=== PATIENT | female | born 1990 | race Caucasian/White ===

== ENCOUNTER 2022-04-27 07:55 | Emergency (ER) | payer OTHER, SELFPAY ==
[2022-04-27 08:05] VITALS: BP 101/56; PULSE 98; RESP 16; TEMP 36.8; O2SAT 97; BMI 28.2
--- NOTE | 2022-04-27 08:53 | ED.GENADULT ---
HPI - General Adult General Time Seen by Provider: 08:53 Date Seen: 04/27/22 Chief complaint: Abdominal Pain Stated complaint: Stomach pain Time Seen by Provider: 04/27/22 08:52 Source: patient and RN notes reviewed Mode of arrival: ambulatory Limitations: no limitations History of Present Illness HPI narrative: Patient is a 32-year-old female accompanied by a female whom I presume is her mom to the ER with abdominal pain. This pain woke her up at about 550 this morning. It does go throughout her whole abdomen but it is concentrated in the lower abdomen. She had a normal bowel movement yesterday. Denies any nausea, vomiting, fever with this. She did not eat this morning but she is hungry. Her appetite has otherwise been normal prior to this. No urinary symptoms. She had a and delivered in July 2020, had a Mirena IUD placed at the visit. She has had an ovarian cyst before but none since the IUD has been in place. She recently had just a little brown spotting but overall does not have significant bleeding with a Mirena IUD, mostly cessation of menses. Yesterday she felt a little left upper quadrant crampy discomfort that went into her back. She has had no respiratory symptoms with this. MD complaint: Abdominal pain Related Data Home Medications Medication Instructions Recorded Confirmed No Known Home Medications 04/27/22 04/27/22 Allergies Allergy/AdvReac Type Severity Reaction Status Date / Time No Known Drug Allergies Allergy Verified 04/17/22 18:51 Review of Systems Status of ROS: Reports: 10 or more systems reviewed and unremarkable except as noted in History and below PFSH PFS Social History Smoking Status: Never smoker Do you use any of these nicotine containing products: None Second hand tobacco smoke exposure: No How often do you have a drink containing alcohol: never How often do you have six or more drinks on one occasion: Never AUDIT-C Alcohol total score: 0 Non-prescribed substance use: denies use Exam Const: Vital Signs, click to edit/add: Vital Signs - 24 hr 04/27/22 08:05 04/27/22 10:00 Temperature 98.2 F Pulse Rate [Right Pulse Oximeter] 98 82 Respiratory Rate 16 20 Blood Pressure [Ri ght Upper Arm] 101/56 L 92/51 L Pulse Oximetry 97 97 Oxygen Delivery Me thod Room Air Room Air Documenting provider has reviewed patient's vital signs: yes Common normals: no apparent distress, average body habitus, oriented x3, no limitations, healthy appearing, alert and well nourished General appearance: cooperative and comfortable HENMT: Common normals: normocephalic, head/scalp atraumatic, hearing grossly normal bilaterally and external ears normal Head and scalp: normocephalic and atraumatic External ear: external ears normal Eye: Common normals: PERRL, EOMs intact bilaterally, conjunctivae normal and no scleral icterus Conjunctiva: conjunctiva(e) normal Pupil: PERRL Neck & C-Spine: Common normals: full ROM, no lymphadenopathy, supple, no meningeal signs, no JVD and thyroid normal Thyroid: thyroid normal Chest: Common normals: inspection of chest normal and palpation of chest normal Resp: Common normals: normal respiratory effort, no retractions, no use of accessory muscles and clear to auscultation bilaterally Auscultation: clear to auscultation bilaterally Cardio: Common normals: no JVD, regular rate, regular rhythm, S1 normal heart sound, S2 normal heart sound, no gallops, no clicks and no murmurs Rate: regular rate Rhythm: regular rhythm Heart sounds: S1 normal and S2 normal GI: Common normals: Normal to inspection, nondistended, normoactive bowel sounds present, soft to palpation, no hepatosplenomegaly and no masses Palpation: soft, tender (Mild diffuse tenderness throughout her lower abdomen, no rebound/guarding) and no hepatosplenomegaly : Common normals: no CVA tenderness Bladder/kidney exam: no CVA tenderness Back & Pelvis: Common normals: no CVA tenderness, thoracic and lumbar spine normal to inspection and no thoracic nor lumbar tenderness Extremity: Common normals: normal to inspection, full ROM, normal capillary refill, no joint enlargement, no clubbing, cyanosis or edema, no calf tenderness and no pedal edema Neuro: Common normals: oriented x3 Sensorium/orientation: alert Meningeal signs: no meningeal signs Course Course Hospital Course: Will place an IV in this patient, obtain blood work. We will initiate some normal saline and Toradol for pain management. We will start with a pelvic ultrasound 1st as ovarian pathology such as ovarian cyst is high in the differential. Patient expressed concern of ectopic as she had done some reading on this. I reviewed with her that that certainly is in her differential and we will be obtaining a test. Will look at appropriate labs and guide therapy accordingly. She understands that we may need to proceed to further advanced imaging in with a CT if need be. Reevaluation(s) Reevaluation #1: Reviewed with Trinidad her ultrasound results. There is a hemorrhagic cyst or follicle on the right ovary. This certainly could explain the lower pelvic pain. She states that she is feeling more on the left side however. Reviewed with her that I sometimes see this that patient is well actually sparing since the pain more on the other side when it comes to the ovaries. We did review her elevated white blood count and did review that we have not completely ruled out an early appendicitis. It is not certainly likely to have 2 issues, we did review radiation, did review possibility observation outpatient. She really would like to proceed with CT abdomen pelvis just to ensure that there is nothing else happening. I do think it is reasonable and I have ordered a CT abdomen and pelvis with IV contrast. She states the Toradol did certainly help. Time: 10:57 Reevaluation #2: Reviewed with her the CT report. There is some stool buildup but she is not feeling constipated. Will give her information on this 5 understand she is not feeling symptomatic. This CT confirms the right ovarian hemorrhagic cyst. She is still having some pain, will send her with some oxycodone for more severe pain, that way she can use Tylenol ibuprofen per bottle directions. Vital Signs Vital signs: Initial Vital Signs Temperature 98.2 F 04/27/22 08:05 Temperature Source Temporal Artery Scan 04/27/22 08:05 Pulse Rate 98 04/27/22 08:05 Pulse Rhythm 04/27/22 08:05 Respiratory Rate 16 04/27/22 08:05 Blood Pressure 101/56 L 04/27/22 08:05 Blood Pressure Mean 71 04/27/22 08:05 Blood Pressure Position Sitting 04/27/22 08:05 Pulse Oximetry 97 04/27/22 08:05 Oxygen Delivery Method 04/27/22 08:05 Vital Signs Temperature 98.2 F 04/27/22 08:05 Pulse Rate 98 04/27/22 08:05 Respiratory Rate 16 04/27/22 08:05 Blood Pressure 101/56 L 04/27/22 08:05 Pulse Oximetry 97 04/27/22 08:05 Oxygen Delivery Method 04/27/22 08:05 Temperature 98.2 F 04/27/22 08:05 Pulse Rate 82 04/27/22 10:00 Respiratory Rate 20 04/27/22 10:00 Blood Pressure 92/51 L 04/27/22 10:00 Pulse Oximetry 97 04/27/22 10:00 Oxygen Delivery Method 04/27/22 10:00 Medical Decision Making Lab Data Lab results reviewed: Yes I reviewed the patient's lab results Labs: Lab Results 04/27/22 04/27/22 04/27/22 Range/Units 09:10 09:10 09:10 WBC 18.06 H (4.50-11.00) K/uL RBC 4.83 (4.00-5.20) m/uL Hgb 14.8 (12.0-16.0) gm/dL Hct 41.3 (33.0-51.0) % MCV 86 (80-100) fL MCH 31 (26-34) pg MCHC 36 (32-36) gm/dL RDW Coeff of Arti 11.7 (11.5-15.5) % Plt Count 162 (140-440) K/uL Neut % (Auto) 85.9 H (42.0-72.0) % Lymph % (Auto) 8.5 L (20-44) % [place] % (Auto) 4.9 (0.0-11.0) % Eos % (Auto) 0.4 (0.0-7.0) % Baso % (Auto) 0.1 (0.0-3.0) % Neut # (Auto) 15.50 H (1.7-7.0) K/uL Lymph # (Auto) 1.50 (0.90-2.90) K/uL [place] # (Auto) 0.90 (0.00-0.90) K/UL Eos # (Auto) 0.10 (0.00-0.50) K/uL Baso # (Auto) 0.00 (0.00-0.30) K/uL Abs Immat Gran (auto) 0.03 (0.00-0.30) K/uL Sodium 138 (135-149) mmol/L Potassium 3.8 (3.6-5.1) mmol/L Chloride 106 (96-114) mmol/L Carbon Dioxide 24 (20-32) mmol/L BUN 17 (5-24) mg/dL Creatinine 0.6 (0.5-1.5) mg/dL Estimated Creat Clear 128.48 Estimated GFR 121 ml/min Glucose 107 (60-115) mg/dL Lactate (0.5-1.9) mmol/L Calcium 9.0 (8.4-10.6) mg/dL Total Bilirubin 0.6 (0.1-1.5) mg/dL AST 20 (12-35) U/L ALT 11 (4-35) U/L Alkaline Phosphatase 57 (40-150) U/L C-Reactive Protein < 0.5 L (0.5-1.0) mg/dL Total Protein 7.9 (6.0-8.3) g/dL Albumin 4.6 (3.3-5.0) g/dL Urine Color (Yellow) Urine Appearance (Clear) Urine pH (5.0-8.5) Ur Specific [place] (1.000-1.030) Urine Protein (Negative) Urine Glucose (UA) (Negative) Urine Ketones (Negative) Urine Blood (Negative) Urine Nitrite (Negative) Urine Bilirubin (Negative) Urine Urobilinogen (0.2-1.0) Ur Leukocyte Esterase (Negative) Urine RBC (0-2) Urine WBC (0-5) Ur Squamous Epith Cells (None-Few) Urine Bacteria (None) Urine HCG, Qual Negative (Negative) 04/27/22 04/27/22 Range/Units 09:10 09:10 WBC (4.50-11.00) K/uL RBC (4.00-5.20) m/uL Hgb (12.0-16.0) gm/dL Hct (33.0-51.0) % MCV (80-100) fL MCH (26-34) pg MCHC (32-36) gm/dL RDW Coeff of Arti (11.5-15.5) % Plt Count (140-440) K/uL Neut % (Auto) (42.0-72.0) % Lymph % (Auto) (20-44) % [place] % (Auto) (0.0-11.0) % Eos % (Auto) (0.0-7.0) % Baso % (Auto) (0.0-3.0) % Neut # (Auto) (1.7-7.0) K/uL Lymph # (Auto) (0.90-2.90) K/uL [place] # (Auto) (0.00-0.90) K/UL Eos # (Auto) (0.00-0.50) K/uL Baso # (Auto) (0.00-0.30) K/uL Abs Immat Gran (auto) (0.00-0.30) K/uL Sodium (135-149) mmol/L Potassium (3.6-5.1) mmol/L Chloride (96-114) mmol/L Carbon Dioxide (20-32) mmol/L BUN (5-24) mg/dL Creatinine (0.5-1.5) mg/dL Estimated Creat Clear Estimated GFR ml/min Glucose (60-115) mg/dL Lactate 0.6 (0.5-1.9) mmol/L Calcium (8.4-10.6) mg/dL Total Bilirubin (0.1-1.5) mg/dL AST (12-35) U/L ALT (4-35) U/L Alkaline Phosphatase (40-150) U/L C-Reactive Protein (0.5-1.0) mg/dL Total Protein (6.0-8.3) g/dL Albumin (3.3-5.0) g/dL Urine Color Yellow (Yellow) Urine Appearance Clear (Clear) Urine pH 5.5 (5.0-8.5) Ur Specific [place] >= 1.030 (1.000-1.030) Urine Protein Negative (Negative) Urine Glucose (UA) Negative (Negative) Urine Ketones Negative (Negative) Urine Blood Negative (Negative) Urine Nitrite Negative (Negative) Urine Bilirubin Negative (Negative) Urine Urobilinogen 0.2 (0.2-1.0) Ur Leukocyte Esterase Negative (Negative) Urine RBC 0-2 (0-2) Urine WBC 0-2 (0-5) Ur Squamous Epith Cells Few (None-Few) Urine Bacteria Few A (None) Urine HCG, Qual (Negative) Imaging Data US - abdomen: Attestation: I have reviewed the pertinent imaging results. Radiologist's impression: Patient: TRINIDAD PANDEY Facility:?[facility] Patient ID:?[id number] Site Patient ID:?[id number]. Site :?[id number] Study:?US Pelvis -04/27/2022 9:50:47 AM Ordering Physician:Pili Solorio Final Report: INDICATION: Acute pelvic pain. TECHNIQUE: Ultrasound pelvis transabdominal and transvaginal for better assessment or to better visualize the endometrium. Real-time sonographic images with spectral and color Doppler imaging of the ovaries were obtained. COMPARISON: None. FINDINGS: Uterus: 7 x 5 x 4 cm. Normal echotexture of the myometrium. No masses. Endometrium: Transvaginal imaging was performed to better evaluate the endometrium. Endometrium is obscured by an IUD which appears in proper position. No sign of endometrial mass or fluid. Right ovary 3 x 2 x 2. Left ovary 3 x 2 x 2. Small collapsed cyst or follicle in the right ovary may be hemorrhagic. Normal arterial and venous blood flow is demonstrated in both ovaries. Cul-de-sac: No significant free fluid. IMPRESSION: Collapsing possibly hemorrhagic small right ovarian cyst or follicle. This is almost certainly benign and does not require follow-up evaluation. Remainder of the exam is unremarkable. No other finding to explain pain. Dictated by Lui Lema MD @ 04/27/2022 10:01:56 AM (Electronic Signature) CT scan - abdomen: Attestation: I have reviewed the pertinent imaging results. Radiologist's impression: Patient: TRINIDAD PANDEY Facility:?[facility] Patient ID:?[id number] Site Patient ID:?[id number]. Site :?[id number] Study:?CT Abdomen/Pelvis W/ISOVUE 370 89CC-04/27/2022 11:24:17 AM Ordering Physician:?Roshni Solorio Final Report: INDICATION: Lower abdominal pain, elevated white blood cell count TECHNIQUE: CT abdomen and pelvis acquired with IV contrast. 89 cc Isovue 370 COMPARISON: None FINDINGS: Lower chest: Unremarkable. Liver: Unremarkable. Spleen: Unremarkable. Pancreas: Unremarkable. Gallbladder and bile ducts: Unremarkable. Kidneys: Unremarkable. Adrenal glands: Unremarkable. GI tract: Diffuse colonic fecal retention. Normal small bowel. Appendix is normal. Vascular structures: Unremarkable. Lymph nodes: Unremarkable. Miscellaneous: No free air or significant free fluid. Pelvic Organs: IUD present in the endometrial canal. Small amount of low-density free fluid right-sided pelvis. Collapsing or ruptured right ovarian cyst Bones: Unremarkable for age. IMPRESSION: Diffuse colonic fecal retention. Normal appendix. No evidence for diverticulitis. Possible collapsing versus ruptured right ovarian cyst small amount of free fluid in the adjacent pelvis. Dictated by Tian Jarvis MD @ 04/27/2022 12:02:20 PM Please note that all CT scans at this facility use dose modulation, iterative reconstruction, and/or weight-based dosing when appropriate to reduce radiation dose to as low as reasonably achievable. Dictated by: Tian Jarvis MD @ 04/27/2022 12:02:25 (Electronic Signature) Critical Care Time Critical Care Time Critical Care Time: No Discharge Plan Discharge Clinical Impression: Cyst of right ovary Patient Disposition: Home, Self-Care Condition: Stable Instructions: Ovarian Cyst (ED), Constipation (ED), High Fiber Diet (ED) Additional Instructions: Try Tylenol ibuprofen per bottle directions baseline for pain. If more severe pain can try the oxycodone. Oxycodone can be constipating and may need to use senna and or MiraLax to help prevent this. Follow handout. If you feel your situation is worsening, pain is uncontrolled, develops severe abdominal pain or have any vomiting or fever with this, need to seek re-evaluation. Activity Level: Activity as Tolerated Discharge Diet: Regular Prescriptions: No Action No Known Home Medications Follow Up/Referrals: Provider,Not a Local [Primary Care Provider] - Stand Alone Forms: [employer] Info Instructions
--- NOTE | 2022-04-27 09:00 | CRLHL7_ITS ---
For Patients: As a result of the Century Cures Act, medical imaging exams and procedure reports are released immediately into your electronic medical record. You may view this report before your referring provider. If you have questions, please contact your health care provider. INDICATION: Acute pelvic pain. TECHNIQUE: Ultrasound pelvis transabdominal and transvaginal for better assessment or to better visualize the endometrium. Real-time sonographic images with spectral and color Doppler imaging of the ovaries were obtained. COMPARISON: None. FINDINGS: Uterus: 7 x 5 x 4 cm. Normal echotexture of the myometrium. No masses. Endometrium: Transvaginal imaging was performed to better evaluate the endometrium. Endometrium is obscured by an IUD which appears in proper position. No sign of endometrial mass or fluid. Right ovary 3 x 2 x 2. Left ovary 3 x 2 x 2. Small collapsed cyst or follicle in the right ovary may be hemorrhagic. Normal arterial and venous blood flow is demonstrated in both ovaries. Cul-de-sac: No significant free fluid. IMPRESSION: Collapsing possibly hemorrhagic small right ovarian cyst or follicle. This is almost certainly benign and does not require follow-up evaluation. Remainder of the exam is unremarkable. No other finding to explain pain. Dictated by Lui Lema MD @ 04/27/2022 10:01:56 AM (Electronically Signed)
--- NOTE | 2022-04-27 09:17 | ED.NURSE ---
Pt to US
[2022-04-27 09:22] LABS: Lactate* 0.6 mmol/L (0.5-1.9)
[2022-04-27 09:25] LABS: Basophils Percent Auto 0.1 % (0.0-3.0); Eosinophils Percent Auto 0.4 % (0.0-7.0); Hematocrit 41.3 % (33.0-51.0); Hemoglobin* 14.8 gm/dL (12.0-16.0); Immature Granulocytes Abs Auto 0.03 K/uL (0.00-0.30); Lymphocytes Percent Auto 8.5 % (20-44); Mean Corpuscular HGB Conc 36 gm/dL (32-36); Mean Corpuscular Hemoglobin 31 pg (26-34); Mean Corpuscular Volume 86 fL (80-100); Monocytes Percent Auto 4.9 % (0.0-11.0); Neutrophils Percent Auto 85.9 % (42.0-72.0); Platelet Count* 162 K/uL (140-440); RDW Coefficient of Variation % 11.7 % (11.5-15.5); Red Blood Count 4.83 m/uL (4.00-5.20); White Blood Count* 18.06 K/uL (4.50-11.00)
[2022-04-27 09:27] LABS: Slide Review Reflex No
[2022-04-27 09:37] LABS: Chloride* 106 mmol/L (96-114)
[2022-04-27 09:38] LABS: Albumin* 4.6 g/dL (3.3-5.0); Sodium* 138 mmol/L (135-149)
[2022-04-27 09:39] LABS: Potassium* 3.8 mmol/L (3.6-5.1)
[2022-04-27 09:41] LABS: Alanine Aminotransferase* 11 U/L (4-35); Alkaline Phosphatase* 57 U/L (40-150); Aspartate Amino Transferase* 20 U/L (12-35); Bilirubin Total* 0.6 mg/dL (0.1-1.5); Carbon Dioxide* 24 mmol/L (20-32); Creatinine* 0.6 mg/dL (0.5-1.5); Est. Creatinine Clearance* 128.48; Estimated Glomerular Filt Rate 121 ml/min; Total Protein* 7.9 g/dL (6.0-8.3)
[2022-04-27 09:42] LABS: Blood Urea Nitrogen* 17 mg/dL (5-24); Glucose* 107 mg/dL (60-115)
[2022-04-27 09:50] LABS: C Reactive Protein* < 0.5 mg/dL (0.5-1.0)
[2022-04-27 09:55] LABS: Appearance Urine Clear (Clear); Bilirubin Urine Negative (Negative); Blood Urine Negative (Negative); Color Urine Yellow (Yellow); Glucose Urine Negative (Negative); Ketones Urine Negative (Negative); Leukocyte Esterase Urine Negative (Negative); Nitrite Urine Negative (Negative); Protein Urine Negative (Negative); Specific Gravity Urine >= 1.030 (1.000-1.030); Urobilinogen Urine 0.2 (0.2-1.0); pH Urine 5.5 (5.0-8.5)
[2022-04-27 09:56] LABS: Ur HCG Qualitative* Negative (Negative)
[2022-04-27] MEDS: 0.9 % SODIUM CHLORIDE 1000 ml 1,000 ML 500 ML IV (09:57)
[2022-04-27] MEDS: KETOROLAC 15 MG/ML inj IVP (09:57)
[2022-04-27 10:00] VITALS: BP 92/51; PULSE 82; RESP 20; O2SAT 97
[2022-04-27 10:17] LABS: Bacteria Urine Few; RBC Urine 0-2 (0-2); Squamous Epithelial Cell Urine Few (None-Few); WBC Urine 0-2 (0-5)
--- NOTE | 2022-04-27 10:57 | CRLHL7_ITS ---
For Patients: As a result of the Century Cures Act, medical imaging exams and procedure reports are released immediately into your electronic medical record. You may view this report before your referring provider. If you have questions, please contact your health care provider. INDICATION: Lower abdominal pain, elevated white blood cell count TECHNIQUE: CT abdomen and pelvis acquired with IV contrast. 89 cc Isovue 370 COMPARISON: None FINDINGS: Lower chest: Unremarkable. Liver: Unremarkable. Spleen: Unremarkable. Pancreas: Unremarkable. Gallbladder and bile ducts: Unremarkable. Kidneys: Unremarkable. Adrenal glands: Unremarkable. GI tract: Diffuse colonic fecal retention. Normal small bowel. Appendix is normal. Vascular structures: Unremarkable. Lymph nodes: Unremarkable. Miscellaneous: No free air or significant free fluid. Pelvic Organs: IUD present in the endometrial canal. Small amount of low-density free fluid right-sided pelvis. Collapsing or ruptured right ovarian cyst Bones: Unremarkable for age. IMPRESSION: Diffuse colonic fecal retention. Normal appendix. No evidence for diverticulitis. Possible collapsing versus ruptured right ovarian cyst small amount of free fluid in the adjacent pelvis. Dictated by Tian Jarvis MD @ 04/27/2022 12:02:20 PM Please note that all CT scans at this facility use dose modulation, iterative reconstruction, and/or weight-based dosing when appropriate to reduce radiation dose to as low as reasonably achievable. Dictated by: Tian Jarvis MD @ 04/27/2022 12:02:25 (Electronically Signed)
--- NOTE | 2022-04-27 11:21 | ED.NURSE ---
Pt to and back from radiology
[2022-04-27 12:54] VITALS: BP 106/63; PULSE 80; RESP 16
== END 2022-04-27 13:11 | disposition home or self-care (01) ==
PROVIDERS: Emergency Provider Family Medicine
DX: N83.201 Unspecified ovarian cyst, right side (principal)
CPT/HCPCS: 36415; 74177; 76830; 76856; 80053; 81001; 81025; 83605; 85025; 86140; 87086; 93976; 96374; 99284; J1885; J7030; Q9967

== ENCOUNTER 2023-04-16 17:49 | Outpatient (CLI) | payer OTHER, SELFPAY | END 2023-04-16 17:50 | disposition home or self-care (01) | PROVIDERS: PCP Obstetrics & Gynecology; Referring Provider Obstetrics & Gynecology; Visit Provider Nurse Practitioner Family | DX: R30.0 Dysuria (principal) | CPT/HCPCS: 87086 ==